=== PATIENT | female | born 1980 | race Caucasian/White ===

== ENCOUNTER 2016-10-31 16:31 | Emergency (ER) | payer OTHER ==
[~2016-10-31] VITALS: Ht 180.3 cm; Wt 77.1 kg
[2016-10-31] MEDS ORDERED: BCP PO (16:45)
[2016-10-31] MEDS ORDERED: BACTRIM 160MG/800MG DS TAB PO ONE (17:00)
[2016-10-31] MEDS ORDERED: ONDANSETRON 4 MG ORAL DISINTEGRATING TAB (S0181) PO ONE (17:00)
[2016-10-31] MEDS ORDERED: NORCO, ANEXSIA 5/325MG TABLET (HYDROcodone/ACETAMINOPHEN) PO ONE (17:00)
[2016-10-31 17:34] LABS: CONTROL LINE UCG INT CTR LINE PRESENT
[2016-10-31] MEDS ORDERED: ACET30TAB PO (17:56)
[2016-10-31] MEDS ORDERED: ZOFR4TAB3 PO (17:56)
[2016-10-31] MEDS ORDERED: BACT800T5 PO (17:56)
[2016-10-31] MEDS ORDERED: NAPR500T2 PO (17:56)
[2016-10-31 18:08] VITALS: BP 111/67
== END 2016-10-31 18:10 | disposition home or self-care (01) ==
LOC: M ED 17:27
DX: N39.0 Urinary tract infection, site not specified (principal); N10 Acute pyelonephritis; F17.210 Nicotine dependence, cigarettes, uncomplicated; Z79.3 Long term (current) use of hormonal contraceptives; Z88.0 Allergy status to penicillin